=== PATIENT | male | born 1970 | race Caucasian/White ===

== ENCOUNTER → 2018-03-05 06:47 | Outpatient (CLI) | payer OTHER, SELFPAY ==
--- NOTE | 2018-03-05 10:17 | STRESSREP ---
Stress Test Report Exercise myocardial perfusion stress test. 47-year-old man with a history of chest pain. Stress protocol: Resting EKG demonstrates normal sinus rhythm with rate of 71 bpm normal intervals noted resting blood pressure 130/84 mmHg. The patient exercised according to regular Darren protocol for a total duration of 11 minutes patient completed 2 minutes into stage IV of the Darren protocol. The maximum heart rate attained was 151 bpm which was 88% of maximum predicted heart rate the maximum workload was 13.4 metabolic equivalents. At rest there were no ST or T wave changes noted suggest ischemia. The patient terminated the test due to leg fatigue. No chest pain was noted. The resting blood pressure 130/84 with a peak blood pressure 190/80 mmHg rate pressure product was 21,600. Myocardial perfusion protocol. 11.0 mCi of technetium 99m sestamibi was injected at rest. The patient exercised according to regular Darren protocol for 11 minutes. At peak exercise 35.0 mCi of technetium 99m sestamibi was injected stress images were obtained stress and rest images were reconstructed and compared in the short axis vertical long horizontal long axis. Gated images were also obtained per Perfusion SPECT analysis: Review of the stress images demonstrate normal uptake of tracer noted in all areas of the myocardium. The resting images similarly demonstrate normal uptake of tracer noted in all areas of the myocardium. No areas of reversibility are noted suggest ischemia. Gated SPECT analysis: The gated ejection fraction is noted to be 65%. Conclusion: Normal exercise myocardial perfusion stress test at a high workload. Preserved ejection fraction. Excellent functional capacity. Preserved ejection fraction.
== END ==
PROVIDERS: Family Provider Internal Medicine; PCP Internal Medicine; Referring Provider Internal Medicine; Visit Provider Internal Medicine
DX: R07.9 Chest pain, unspecified (principal)
CPT/HCPCS: 78452; 93017; A9500; A4216

== ENCOUNTER 2019-05-03 05:50 | Day surgery (SDC) | payer OTHER, SELFPAY ==
[2019-05-03] VITALS (8 sets, daily range): BP systolic 99–130; BP diastolic 45–85; PULSE 49–66; RESP 16; TEMP 36.5–36.9; O2SAT 96–100; BMI 30.7
--- NOTE | 2019-05-03 06:17 | PCM.HP.STD ---
Problem List (1) Screening for intestinal cancer Status: Acute History of Present Illness Date of Admission: 05/03/19 The patient is a 48 year old M who presents today for screening colonoscopy. He denies bright red blood per rectum or melena. No abdominal pain. No unexpected weight loss. He otherwise in good choice good health. Past Medical History Allergies No Known Allergies Allergy (Verified 05/03/19 06:11) Home Medications: Ambulatory Orders Medication Instructions Recorded Allopurinol [Zyloprim] 100 mg PO BIDCM 04/30/19 Metoprolol Succinate 50 mg PO DAILY 04/30/19 Smoking Status: Never smoker Tobacco Use: Non-smoker Review of Systems Constitutional: Denies: Anorexia Cardiovascular: Denies: Chest Pain Gastrointestinal: Denies: Abdominal Pain, Melena Endocrine: Denies: Change in Body Habitus VTE Information - Inpt Only VTE Present on Admission: No Patient Problems: Active and Suspected Problems Screening for intestinal cancer (Acute) - Physical Exam General: Alert, Oriented x3, Cooperative, No apparent distress Oral: Moist Mucosa Lungs: Clear to auscultation, Normal air movement Cardiovascular: Regular rate, Regular Rhythm Abdomen: Bowel Sounds Present, Soft, Non Tender, Non-Distended Extremities: No Calf Tenderness Assessment/Plan All Active Problems Screening for intestinal cancer (Acute) Plan to proceed with colonoscopy with possible biopsy or polypectomy is indicated. He is aware of the technique, benefit, risks, alternatives. He has had an opportunity to ask and have questions answered. Previous colonoscopy was 2008 without acute finding other than some mild melanosis. No personal or family history of colon cancer Jun Flores M.D., F.A.C.S.
[2019-05-03] MEDS: Lactated Ringers 1,000 ML 75 ML IV (06:22)
--- NOTE | 2019-05-03 07:00 | COLBX_PTH ---
PATIENT: BRITTNEY ELLIS LOC: EN U#:[id number] AGE/SX: 48/M ROOM: RE05/03/[address]: Dr. Jun Flores MD : 1970 BED: DIS: 05/03/2019 SPEC #: [id number] RECD: 05/03/19 11:29 STATUS: JAN RADHA #: [id number] VANESA: 05/03/19 07:[address]: Jun Flores DEPT: SURGICAL PATHOLOGY RECD BY: Thiago Segura ENTERED: 05/03/19 11:55 SP TYPE: COLON BX OTHR DR: Dr. Jemima Shook MD Tissues: Descending colon Procedures: Surgery Specimen Level IV HEADER OPERATION: Colonoscopy - open access (MOD) PRE-OP DIAGNOSIS: Screening TISSUE SUBMITTED: Descending colon polyp biopsy MICROSCOPIC DIAGNOSIS Descending colon polyp, biopsy: Fragments of benign colonic mucosa. See comment. AM:baron 05/06/19 COMMENT Neither hyperplastic nor adenomatous change is identified. Clinical correlation is suggested. MICROSCOPIC DESCRIPTION Slides are reviewed. GROSS DESCRIPTION Received in fixative is one container labeled with the patient's name and designated descending colon polyp. The specimen consists of multiple irregular fragments of light cruz soft tissue that in aggregate measure 0.8 x 0.3 x 0.1 cm. The specimen is totally submitted in one cassette. / SJ:rg 05/03/19 TC:5 CPT: 10016
--- NOTE | 2019-05-06 14:18 | OP.COLON_ITS ---
Patient Name: Omi Ortega Procedure Date: 05/03/2019 6:57 AM Date of : 1970 Age: 48 Procedure: Colonoscopy Indications: Screening for colorectal malignant neoplasm Providers: Jun Flores MD Referring MD: Jemima Shook Medicines: Midazolam 4 mg IV, Meperidine 100 mg IV Patient Profile: Last Colonoscopy: 2008. Complications: No immediate complications. Procedure: Pre-Anesthesia Assessment: - Prior to the procedure, a History and Physical was performed, and patient medications and allergies were reviewed. The patient's tolerance of previous anesthesia was also reviewed. The risks and benefits of the procedure and the sedation options and risks were discussed with the patient. All questions were answered, and informed consent was obtained. Prior Anticoagulants: The patient has taken no previous anticoagulant or antiplatelet agents. ASA Grade Assessment: II - A patient with mild systemic disease. After reviewing the risks and benefits, the patient was deemed in satisfactory condition to undergo the procedure. After I obtained informed consent, the scope was passed under direct vision. Throughout the procedure, the patient's blood pressure, pulse, and oxygen saturations were monitored continuously. The colonoscope was introduced through the anus and advanced to the cecum, identified by appendiceal orifice and ileocecal valve. The colonoscopy was performed without difficulty. The patient tolerated the procedure well. The quality of the bowel preparation was excellent. The ileocecal valve and the appendiceal orifice were photographed. Moderate Sedation: Moderate (conscious) sedation was personally administered by the endoscopist. The following parameters were monitored: oxygen saturation, heart rate, blood pressure, and response to care. Total physician intraservice time was 15 minutes. Scope In: 7:09:40 AM Scope Withdrawal Time 0 hours 7 minutes 5 seconds Scope Out: 7:19:27 AM Total Procedure Duration Time 0 hours 9 minutes 47 seconds Findings: The digital rectal exam findings include non-thrombosed external hemorrhoids, non-thrombosed internal hemorrhoids and internal hemorrhoids that prolapse with straining, but spontaneously regress to the resting position (Grade II). Pertinent negatives include normal prostate (size, shape, and consistency). A 3 mm polyp was found in the distal descending colon. The polyp was sessile. The polyp was removed with a cold biopsy forceps. Resection and retrieval were complete. The entire examined colon appeared normal. Impression: - Non-thrombosed external hemorrhoids, non-thrombosed internal hemorrhoids and internal hemorrhoids that prolapse with straining, but spontaneously regress to the resting position (Grade II) found on digital rectal exam. - One 3 mm polyp in the distal descending colon, removed with a cold biopsy forceps. Resected and retrieved. - The entire examined colon is normal. Recommendation: - Discharge patient to home. - Resume previous diet. - Continue present medications. - Repeat colonoscopy in 5 years for surveillance. - Telephone my office for pathology results in 1 week. Procedure Code(s): --- Professional --- 35969, Colonoscopy, flexible; with biopsy, single or multiple 24999, 59, Moderate sedation services provided by the same physician or other qualified health patient care specialist performing the diagnostic or therapeutic service that the sedation supports, requiring the presence of an independent trained observer to assist in the monitoring of the patient's level of consciousness and physiological status; initial 15 minutes of intraservice time, patient age 5 years or older Diagnosis Code(s): --- Professional --- Z12.11, Encounter for screening for malignant neoplasm of colon K64.1, Second degree hemorrhoids K64.4, Residual hemorrhoidal skin tags D12.4, Benign neoplasm of descending colon CPT copyright 2017 [employer]. All rights reserved. The codes documented in this report are preliminary and upon train system operator review may be revised to meet current compliance requirements. Jun Flores MD 05/03/2019 7:23:44 AM This report has been signed electronically. Number of Addenda: 0 Note Initiated On: 05/03/2019 6:57 AM
--- NOTE | 2019-05-06 14:18 | OP.CCLET_ITS ---
05/06/2019 Jemima Shook Re : Colonoscopy procedure for Omi Ortega Dear [place] This procedure was performed on Friday, May 03, 2019. My impressions and recommendations are as follows: Impressions : - Non-thrombosed external hemorrhoids, non-thrombosed internal hemorrhoids and internal hemorrhoids that prolapse with straining, but spontaneously regress to the resting position (Grade II) found on digital rectal exam. - One 3 mm polyp in the distal descending colon, removed with a cold biopsy forceps. Resected and retrieved. - The entire examined colon is normal. Recommendations : - Discharge patient to home. - Resume previous diet. - Continue present medications. - Repeat colonoscopy in 5 years for surveillance. - Telephone my office for pathology results in 1 week. My findings are described in the full procedure note, which is enclosed. If I can be of further assistance, please feel free to contact me at Doctor phone number(s): Work: . Sincerely, Jun Flores MD 05/03/2019 7:23:44 AM This report has been signed electronically.
== END 2019-05-03 08:11 | disposition home or self-care (01) ==
LOC: EN 05:52 → AC 05:53
PROVIDERS: Family Provider Internal Medicine; PCP Internal Medicine; Referring Provider Internal Medicine; Visit Provider Surgery
PROC: 0DJD8ZZ Inspection of Lower Intestinal Tract, Via Natural or Artificial Opening Endoscopic (ICD-10-PCS; CPT 45378; principal; 2019-05-03 06:55)
DX: Z12.11 Encounter for screening for malignant neoplasm of colon (principal); D12.4 Benign neoplasm of descending colon; K64.1 Second degree hemorrhoids; K64.4 Residual hemorrhoidal skin tags
CPT/HCPCS: 45380; 88305; 99152; 99153; J7120

== ENCOUNTER → 2020-05-05 09:41 | Outpatient (CLI) | payer OTHER, SELFPAY ==
[2019-05-03 06:11] VITALS: BMI 30.7
--- NOTE | 2020-05-05 09:44 | EKG12_ITS ---
Test Reason : PRE SURGERY Blood Pressure : / mmHG Vent. Rate : 074 BPM Atrial Rate : 074 BPM P-R Int : 158 ms QRS Dur : 094 ms QT Int : 370 ms P-R-T Axes : 051 004 041 degrees QTc Int : 410 ms Normal sinus rhythm with sinus arrhythmia Normal ECG Confirmed by NITHIN CANAS, SHARIFA ([id number]), electronic news gathering editor WOLF ELLIS ([id number]) on 05/06/2020 8:02:10 AM Referred By: Omi Blount Confirmed By:SHARIFA WELLER MD
== END ==
PROVIDERS: PCP Internal Medicine; Referring Provider Orthopaedic Surgery; Visit Provider Orthopaedic Surgery
DX: Z20.822 Contact with and (suspected) exposure to COVID-19 (principal); Z01.812 Encounter for preprocedural laboratory examination; Z01.810 Encounter for preprocedural cardiovascular examination; Z79.899 Other long term (current) drug therapy
CPT/HCPCS: 87635; 93005; C9803; U0005; U0003

== ENCOUNTER → 2020-05-12 12:07 | Outpatient (CLI) | payer OTHER, SELFPAY ==
[2019-05-03 06:11] VITALS: BMI 30.7
[2020-05-12 12:42] LABS: Hematocrit 46.6 % (40-54); Hemoglobin 15.4 g/dL (13.0-16.5); Mean Corpuscular Hgb 27.4 pg (27.0-32.0); Mean Corpuscular Volume 82.8 fL (80-94); Mean Platelet Vol. 9.8 fl (6.2-12.0); Platelet Count 251 K/mm3 (150-450); RBC Distribution Width CV 13.1 % (11.6-14.6); RBC Distribution Width SD 39.5 fl (35.1-43.9); Red Blood Count 5.63 M/mm3 (4.6-6.2); White Blood Count 6.6 K/mm3 (4.4-11.0)
[2020-05-12 13:31] LABS: Anion Gap 5 (5-15); BUN 21 mg/dL (7-18); Chloride 107 mmol/L (98-107); Creatinine, Serum 1.31 mg/dL (0.70-1.30); EST Glomerular Filtration Rate 61 mL/min (>60); Est Glom Filt Rate - Afr Amer 74 mL/min (>60); Glucose 79 mg/dL (74-106); Potassium 4.2 mmol/L (3.5-5.1); Sodium Level 140 mmol/L (136-145)
== END ==
PROVIDERS: PCP Internal Medicine; Referring Provider Orthopaedic Surgery; Visit Provider Orthopaedic Surgery
DX: Z01.818 Encounter for other preprocedural examination (principal); Z79.899 Other long term (current) drug therapy
CPT/HCPCS: 36415; 80048; 85027

== ENCOUNTER → 2021-03-01 15:34 | Outpatient (CLI) | payer OTHER, SELFPAY ==
--- NOTE | 2021-03-01 15:48 | RAD_ITS ---
STUDY: X-RAY CHEST REASON FOR EXAM: Male, 50 years old. WHEEZING TECHNIQUE: PA and lateral views of the chest. COMPARISON: None. FINDINGS: The lungs are clear and expanded. There is no demonstrated pleural abnormality. Normal size heart. Normal mediastinum and liam. Normal visualized pulmonary arteries. Normal visualized aortic arch and descending thoracic aorta. Normal visualized thoracic spine. Normal visualized ribs, clavicles, and shoulders. There is no demonstrated abnormality of the visualized soft tissue structures of the upper abdomen. RAD/Chest PA and Lateral IMPRESSION: Normal x-ray examination of the chest. Electronically Signed: Maria Elena Flores MD at 16:39 EST Tel , Service support ,
== END ==
PROVIDERS: PCP Internal Medicine; Referring Provider Internal Medicine; Visit Provider Internal Medicine
DX: R06.2 Wheezing (principal)
CPT/HCPCS: 71046

== ENCOUNTER 2021-06-10 15:39 | Outpatient (CLI) | payer OTHER, SELFPAY ==
--- NOTE | 2021-06-10 15:42 | RAD_ITS ---
STUDY: X-RAY CHEST REASON FOR EXAM: Male, 51 years old. Cough, sensation of something in lower throat TECHNIQUE: PA and lateral views of the chest. COMPARISON: 03/01/2021 FINDINGS: The lungs are clear and expanded. There is no demonstrated pleural abnormality. Normal size heart. Normal mediastinum and liam. Normal visualized pulmonary arteries. Normal visualized aortic arch and descending thoracic aorta. Normal visualized thoracic spine. Normal visualized ribs, clavicles, and shoulders. There is no demonstrated abnormality of the visualized soft tissue structures of the upper abdomen. RAD/Chest PA and Lateral IMPRESSION: Normal x-ray examination of the chest. Electronically Signed: Damion Morgan MD ([place]) at 16:07 EST ,
--- NOTE | 2021-06-10 16:00 | RAD_ITS ---
STUDY: X-RAY - CERVICAL SPINE REASON FOR EXAM: Male, 51 years old. Cough, sensation of something in lower throat , neck pain TECHNIQUE: 3 view(s) of the cervical spine were obtained. COMPARISON: None FINDINGS: Normal anterior atlantoaxial articulation. Normal odontoid process. Normal cervical lordosis. There is multi-level endplate spondylosis. There is multi-level degenerative disc disease with multilevel disc space narrowing. Disc space narrowing most pronounced at C3-C4 and C5-C6. Multilevel uncovertebral hypertrophy. The soft tissue structures are unremarkable. RAD/Cerv Spine 2 or 3 Views IMPRESSION: Multilevel degenerative disc disease. Electronically Signed: Damion Morgan MD ([place]) at 16:11 EST ,
== END 2021-06-10 23:59 | disposition home or self-care (01) ==
PROVIDERS: PCP Internal Medicine; Referring Provider Internal Medicine; Visit Provider Internal Medicine
DX: M50.30 Other cervical disc degeneration, unspecified cervical region (principal); M47.812 Spondylosis without myelopathy or radiculopathy, cervical region; M48.02 Spinal stenosis, cervical region; R05.9 Cough, unspecified
CPT/HCPCS: 71046; 72040

== ENCOUNTER → 2023-03-28 | Outpatient (CLI) | payer OTHER, SELFPAY ==
--- NOTE | 2023-03-28 07:35 | RAD_ITS ---
STUDY: X-RAY - RIGHT KNEE REASON FOR EXAM: Male, 52 years old. Right knee pain. TECHNIQUE: 4 view(s) of the knee. COMPARISON: None. FINDINGS: Normal visualized distal femur. Normal visualized proximal tibia and fibula. Normal proximal tibiofibular articulation. Small superior patellar spur. Normal medial femorotibial compartment. Normal lateral femorotibial compartment. Slight lateral tilt of the patella. Normal soft tissues. RAD/Knee 4 or More Views IMPRESSION: Small superior patellar spur with slight lateral tilt of the patella. No other abnormality. Electronically Signed: Vishal Kennedy MD at 9:30 EST ,
--- NOTE | 2023-03-28 07:35 | CT_ITS ---
STUDY: CT ABDOMEN AND PELVIS WITH CONTRAST REASON FOR EXAM: Male, 52 years old. Left lower quadrant pain RADIATION DOSAGE (If Supplied By Facility): CTDIvol = ( 15.99 ) mGy, DLP = ( 1123.79 ) mGycm TECHNIQUE: Transaxial images were obtained through the abdomen and pelvis with oral contrast. 100 ml of Isovue-300 contrast was administered. Sagittal and coronal images were reconstructed. Individualized dose optimization techniques were used for this CT. COMPARISON: Prior study dated: 01/06/2017 FINDINGS: LOWER THORAX: The visualized lung bases are clear. The visualized portions of the heart and pericardium are within normal limits. GALLBLADDER / BILE DUCTS: There are no calcified gallstones present. There is no intrahepatic biliary duct dilatation. The common bile duct is normal in caliber. There are no calcified ductal stones. LIVER: The liver is within normal limits. There are no suspicious hepatic lesions. SPLEEN: The spleen is normal in size. PANCREAS: The pancreas is within normal limits. ADRENAL GLANDS: The adrenal glands are within normal limits. KIDNEYS / BLADDER: There are no renal or ureteral stones. There is no hydronephrosis. There are no focal renal lesions. The urinary bladder is partially distended and appears grossly unremarkable. STOMACH / BOWEL: Normal visualized stomach. There is no bowel obstruction or inflammation. The appendix is visualized and appears normal. PERITONEUM/RETROPERITONEUM: There is no abdominal or pelvic free air, free fluid or fluid collection. There is no abnormal soft tissue mass identified. There is no abdominal or pelvic lymphadenopathy. VESSELS: The aorta is normal in caliber. The IVC is unremarkable. BONES: There are degenerative changes noted in the spine. There are no destructive osseous lesions. There is bilateral spondylolysis at L5. SOFT TISSUES: The visualized soft tissues are within normal limits. CT/Abdomen/Pelvis WITH Contrast IMPRESSION: No acute abdominal or pelvic pathology. Electronically Signed: Noble Jarrett MD at 8:32 EST ,
== END | disposition home or self-care (01) ==
PROVIDERS: PCP Internal Medicine; Referring Provider Internal Medicine; Visit Provider Internal Medicine
DX: M25.561 Pain in right knee (principal); R10.32 Left lower quadrant pain
CPT/HCPCS: 73564; 74177; Q9967